=== PATIENT | female | born 1980 | race Caucasian/White ===

== ENCOUNTER 2017-05-25 11:26 | Outpatient (CLI) | payer BC ==
[2017-05-25 12:10] LABS: #Basophils 0.1 thou/uL (0.0-0.2); #Eosinphils 0.1 thou/uL (0.0-0.7); #Lymphocytes 1.6 thou/uL (1.20-3.40); #Monocytes 0.4 thou/uL (0.11-0.59); %Basophils 1.1 % (0.0-1.0); %Eosinophils 1.7 % (0.0-10.0); %Lymphocytes 26.4 % (21.0-51.0); %Monocytes 6.4 % (0.0-10.0); Hematocrit 42.2 % (36.0-47.0); Mean Platelet Volume 8.3 fL (7.4-10.4); Red Blood Cell (RBC) Count 4.61 mill/uL (4.20-5.40); White Blood Cell (WBC) Count 6.2 thou/uL (4.8-10.8)
== END 2017-05-25 11:27 | disposition home or self-care (01) ==
LOC: LABBT 11:26
PROVIDERS: ATTEND Orthopaedic Surgery Hand Surgery
DX: Z01.812 Encounter for preprocedural laboratory examination (principal); T14.8 Other injury of unspecified body region
CPT/HCPCS: 84703; 85025

== ENCOUNTER 2017-10-15 14:14 | Day surgery (SDC) | payer BC ==
[2017-10-12 16:38] VITALS: BMI 23.4
[2017-10-15] MEDS ORDERED: Bacitracin Zinc Ointment 30 gm TUBE ONE (14:39)
[2017-10-15] MEDS ORDERED: Bupivacaine 0.5% 10 ML VIAL ONE (14:39)
[2017-10-15] MEDS ORDERED: Sodium Chloride 0.9% 10 ML ONE (14:39)
[2017-10-15] MEDS ORDERED: Ketorolac Tromethamine 30 MG/ML VIAL ONE ×2 (14:46→16:49)
[2017-10-15] MEDS ORDERED: Ondansetron HCl/PF 4 MG/2 ML Vial ONE (14:46)
[2017-10-15] MEDS ORDERED: Dexamethasone 20 MG/5 ML VIAL ONE (14:46)
[2017-10-15] MEDS ORDERED: Lidocaine 1% PF 5 ML VIAL ONE (14:46)
[2017-10-15] MEDS ORDERED: PROPOFOL 200 MG/20 ML VIAL ONE (14:46)
[2017-10-15] MEDS ORDERED: Clindamycin/D5W 600 mg/50 ml Premix Bag ONE (15:20)
[2017-10-15 15:40] LABS: Band 6 % (5-11); Eosinophils 1 % (0-10); Hemoglobin 14.5 g/dL (12.0-16.0); Lymphocytes 11 % (21-51); MDiff Complete? YES; Mean Corpuscular HGB CONC 34.6 g/dL (32.0-36.0); Mean Corpuscular Hemoglobin 31.3 pg (27.0-31.0); Mean Corpuscular Volume 90.6 fl (81.0-99.0); Mean Platelet Volume 7.8 fL (7.4-10.4); Monocytes 4 % (0-10); Neutrophil 78 % (42-75); PLT Morphology Comment Appears Adequate; Platelet Count 208 thou/uL (130-400); RBC Distribution Width 11.1 % (11.5-14.5); Red Blood Cell (RBC) Count 4.64 mill/uL (4.20-5.40); White Blood Cell (WBC) Count 6.4 thou/uL (4.8-10.8)
[2017-10-15] MEDS ORDERED: Propofol 500 MG/50 ML VIAL ONE (15:52)
[2017-10-15] MEDS ORDERED: Fentanyl 100 MCG/2 ML VIAL ONE ×2 (15:53→17:07)
--- NOTE | 2017-10-16 08:08 | RAD ---
LEFT HAND THREE VIEWS: History: 37-year-old female with history of left hand hardware removal. FINDINGS: No residual hardware is noted in the region of the thumb. Possible old displaced chip type fracture i nvolving the base of the proximal phalanx of the thumb. POS: OFF
--- NOTE | 2017-10-16 10:18 | OP ---
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 FINDINGS: With the wire removed, the radial collateral ligament was not in stable and the patient ordoñez d no change in her at least 60% healed base of the proximal phalanx radial corner fracture. PROCEDURES PERFORMED: 1. C-arm supervision less than 1 hour. 2. Removal of deep implant on the C-arm supervision. ANESTHESIA: Stellate ganglion block augmented by general LMA technique. ESTIMATED BLOOD LOSS: 2 mL. SURGEON: Michele Isaacs M.D. NETWORK PROGRAMMER: Mark Kim, Fund Accountant. INDICATION: The patient with a 3-1/2 month old fracture and already had the K-wire removed around th e joint, but does not move it much because she has severe RSD, which has undergone treatment with joana llate ganglion blocks including one today prior to surgery. DESCRIPTION OF PROCEDURE: After successful general LMA technique and together, limb was preppe d and draped. C-arm brought into the field.. We identified the base of the wire where it was in the bone deep with pertinent surgery. We did exsanguinate the limb and inflated tourniquet to 250 mmHg pressure after timeout was done. Then, we went in the area, identified the C-arm with an 11 blade kn floridalma, opened the skin for 5 mm dissect down to the wire deep and its visualized. We removed with a ne edle monzon. Release of the tourniquet, obtained hemostasis, closed the wound with interrupted 4-0 c hromic. A bulky dressing was applied. She left the operating room without evidence of anesthetic op erative complications.
== END 2017-10-15 18:06 | disposition home or self-care (01) ==
LOC: SDC 14:14 → EEVIPCON 14:14 → SDC 18:06
PROVIDERS: ATTEND Orthopaedic Surgery Hand Surgery
PROC: 0PP Upper Bones, Removal (ICD-10-PCS; principal; 2017-10-15)
DX: G90.512 Complex regional pain syndrome I of left upper limb (principal); T84.84XA Pain due to internal orthopedic prosthetic devices, implants and grafts, initial encounter; J45.909 Unspecified asthma, uncomplicated; K59.09 Other constipation; F41.8 Other specified anxiety disorders; Z79.1 Long term (current) use of non-steroidal anti-inflammatories (NSAID); Z79.891 Long term (current) use of opiate analgesic; Z79.899 Other long term (current) drug therapy; Z88.1 Allergy status to other antibiotic agents; Z98.51 Tubal ligation status; Z90.89 Acquired absence of other organs; Z98.890 Other specified postprocedural states; Z87.19 Personal history of other diseases of the digestive system; Z87.891 Personal history of nicotine dependence
CPT/HCPCS: 76001; 85025; 96374; A4216; J1100; J1885; J2001; J2405; J2704; J3010; J3490

== ENCOUNTER 2018-09-05 09:26 | Outpatient (CLI) | payer OTHER ==
--- NOTE | 2018-09-05 17:39 | MRI ---
MRI OF THE PELVIS WITHOUT IV CONTRAST: 09/05/18 INDICATION: Left sided hip pain after picking up something back in November. COMPARISON: None. FINDINGS: No acute fracture is evident. No joint effusion is evident. Visualized SI joints are normal appearing . No trochanteric or iliopsoas bursitis is evident. No definite paralabral cyst seen to suggest under lying presence of labral tear. The visualized bladder is unremarkable. There is a prominent 5 cm T2 hyperintense, T1 hypointense lesion involving the left adnexa which may reflect a mildly complex cyst. Complex cystic mass is not excluded. The visualized rectus femoris and hamstring origins appear within normal limits. No lymphadenopathy i s grossly evident. The visualized sciatic nerve is normal appearing. IMPRESSION: 1. Prominent cystic lesion involving the left adnexa is incompletely characterized on the curren t exam. Recommend pelvic ultrasound for further evaluation. Complex cystic mass is not excluded. 2. No acute fracture is evident involving the proximal left hip. No definite paralabral cyst is seen to suggest the presence of labral tear. No joint effusion is evident. The visualized left hip gi rdle musculature appears within normal limits without evidence of strain or evidence of bursitis. Code T POS: [facility]
== END 2018-09-05 09:27 | disposition home or self-care (01) ==
LOC: SCSMRI 09:26
PROVIDERS: ATTEND Physical Medicine & Rehabilitation
DX: M25.552 Pain in left hip (principal); M79.605 Pain in left leg; M25.551 Pain in right hip; M79.604 Pain in right leg; M25.851 Other specified joint disorders, right hip; N83.8 Other noninflammatory disorders of ovary, fallopian tube and broad ligament
CPT/HCPCS: 72195